=== PATIENT | female | born 1985 | race American Indian/Alaskan Native ===

== ENCOUNTER 2019-09-15 11:09 | Outpatient (CLI) | payer OTHER | END 2019-09-15 12:25 | disposition home or self-care (01) | LOC: NST 11:09 | DX: O13.2 Gestational [pregnancy-induced] hypertension without significant proteinuria, second trimester (principal) ==

== ENCOUNTER 2019-09-29 09:15 | Outpatient (CLI) | payer OTHER | END 2019-09-29 11:31 | disposition home or self-care (01) | LOC: NST 09:15 | DX: Z34.83 Encounter for supervision of other normal pregnancy, third trimester (principal) ==

== ENCOUNTER 2019-10-27 09:33 | Outpatient (CLI) | payer OTHER | END 2019-10-27 10:45 | disposition home or self-care (01) | LOC: NST 09:33 | DX: Z34.83 Encounter for supervision of other normal pregnancy, third trimester (principal) ==

== ENCOUNTER 2019-11-10 12:17 | Outpatient (CLI) | payer OTHER | END 2019-11-10 12:52 | disposition home or self-care (01) | LOC: NST 12:17 | PROVIDERS: ATTEND Obstetrics & Gynecology | DX: Z34.83 Encounter for supervision of other normal pregnancy, third trimester (principal) ==

== ENCOUNTER 2019-11-16 11:00 | Outpatient (CLI) | payer OTHER | END 2019-11-16 11:29 | disposition home or self-care (01) | LOC: NST 11:00 | PROVIDERS: ATTEND Obstetrics & Gynecology | DX: Z34.83 Encounter for supervision of other normal pregnancy, third trimester (principal) ==

== ENCOUNTER → 2019-11-24 | Outpatient (CLI) | payer OTHER ==
[~2019-11-24] MED LIST: FOLIC ACID0.8 M1 PO; NIFEDIPINE20 MG PO; PRENATAL TABLE1 EAC1 PO; TRANDATE300 MG PO
== END | disposition home or self-care (01) ==
LOC: NST 12:01
PROVIDERS: ATTEND Obstetrics & Gynecology Maternal & Fetal Medicine
DX: Z34.83 Encounter for supervision of other normal pregnancy, third trimester (principal)

== ENCOUNTER 2019-11-29 05:50 | Inpatient (IN) | payer OTHER ==
[~2019-11-29] VITALS: Ht 157.5 cm; Wt 67.1 kg
[2019-11-29] MEDS ORDERED: PRENATAL TABLE1 EAC1 PO (06:39)
[2019-11-29] MEDS ORDERED: TRANDATE300 MG PO (06:39)
[2019-11-29] MEDS ORDERED: NIFEDIPINE20 MG PO (06:39)
[2019-11-29] MEDS ORDERED: FOLIC ACID0.8 M1 PO (06:40)
== END 2019-12-02 12:17 | disposition home or self-care (01) | DRG 788 ==
LOC: SURG-SUITE 05:50 → LDR 05:50 → O/R 17:24 → SURG-SUITE 18:44 → OB/GYN 12-10 12:58
PROVIDERS: ADMIT Obstetrics & Gynecology Maternal & Fetal Medicine; ATTEND Obstetrics & Gynecology
PROC: 4A1HXFZ Monitoring of Products of Conception, Cardiac Rhythm, External Approach (ICD-10-PCS; 2019-11-29)
PROC: 3E033VJ Introduction of Other Hormone into Peripheral Vein, Percutaneous Approach (ICD-10-PCS; 2019-11-29)
PROC: 10907ZC Drainage of Amniotic Fluid, Therapeutic from Products of Conception, Via Natural or Artificial Opening (ICD-10-PCS; 2019-11-29)
PROC: 10D00Z1 Extraction of Products of Conception, Low, Open Approach (ICD-10-PCS; principal; 2019-11-29 16:30)
DX: O99.824 Streptococcus B carrier state complicating childbirth (principal); O62.1 Secondary uterine inertia; Z37.0 Single live birth; Z3A.38 38 weeks gestation of pregnancy; O16.4 Unspecified maternal hypertension, complicating childbirth

== ENCOUNTER 2021-02-28 11:26 | Outpatient (CLI) | payer OTHER | END 2021-02-28 12:08 | disposition home or self-care (01) | LOC: NST 11:26 | PROVIDERS: ATTEND Obstetrics & Gynecology Maternal & Fetal Medicine | DX: Z34.83 Encounter for supervision of other normal pregnancy, third trimester (principal) ==

== ENCOUNTER → 2021-03-07 | Outpatient (CLI) | payer OTHER | END | disposition home or self-care (01) | LOC: NST 14:30 | PROVIDERS: ATTEND Obstetrics & Gynecology Maternal & Fetal Medicine | DX: Z34.83 Encounter for supervision of other normal pregnancy, third trimester (principal) ==

== ENCOUNTER 2021-03-21 13:19 | Outpatient (CLI) | payer OTHER | END 2021-03-21 13:29 | disposition home or self-care (01) | LOC: NST 13:19 | PROVIDERS: ATTEND Obstetrics & Gynecology | DX: Z34.83 Encounter for supervision of other normal pregnancy, third trimester (principal) ==

== ENCOUNTER 2021-03-28 09:47 | Outpatient (CLI) | payer OTHER | END 2021-03-28 10:44 | disposition home or self-care (01) | LOC: NST 09:47 | PROVIDERS: ATTEND Obstetrics & Gynecology | DX: Z34.83 Encounter for supervision of other normal pregnancy, third trimester (principal) ==

== ENCOUNTER 2021-04-04 09:33 | Outpatient (CLI) | payer OTHER | END 2021-04-04 10:05 | disposition home or self-care (01) | LOC: NST 09:33 | PROVIDERS: ATTEND Obstetrics & Gynecology | DX: Z34.83 Encounter for supervision of other normal pregnancy, third trimester (principal) ==

== ENCOUNTER 2021-04-11 08:28 | Outpatient (CLI) | payer OTHER | END 2021-04-11 09:07 | disposition home or self-care (01) | LOC: NST 08:28 | PROVIDERS: ATTEND Obstetrics & Gynecology | DX: Z34.83 Encounter for supervision of other normal pregnancy, third trimester (principal) ==

== ENCOUNTER 2021-04-18 09:54 | Outpatient (CLI) | payer OTHER ==
[2021-04-18] MEDS ORDERED: PRENA1 CHEW TA1.4 MG PO (14:14)
== END 2021-04-18 10:37 | disposition home or self-care (01) ==
LOC: NST 09:54
PROVIDERS: ATTEND Obstetrics & Gynecology Maternal & Fetal Medicine
DX: Z34.83 Encounter for supervision of other normal pregnancy, third trimester (principal)

== ENCOUNTER 2021-04-18 11:30 | Inpatient (IN) | payer OTHER ==
[~2021-04-18] VITALS: Ht 154.9 cm; Wt 3.2 kg
[2021-04-18] MEDS ORDERED: PRENA1 CHEW TA1.4 MG PO (14:14)
[2021-04-23] MEDS ORDERED: LABETALOL HCL200 MG PO (08:26)
[2021-04-23] MEDS ORDERED: FOLIC ACID0.8 M1 PO (08:27)
[2021-04-23] MEDS ORDERED: NIFEDIPINE ER30 M1 (16:34)
[2021-04-23] MEDS ORDERED: CLONAZEPAM2 MG (16:34)
[2021-04-23] MEDS ORDERED: ESTAZOLAM2 MG (16:35)
[2021-04-23] MEDS ORDERED: VENLAFAXINE H37.5 MG (16:35)
[2021-04-26] MEDS ORDERED: OXYC1TAB9 PO (09:19)
[2021-04-26] MEDS ORDERED: KETO10TA2 PO (09:19)
== END 2021-04-26 15:30 | disposition home or self-care (01) | DRG 784 ==
LOC: OB/GYN 04-23 08:03 → SURG-SUITE 04-23 08:03 → O/R 04-23 08:03 → SURH 04-23 11:30 → OB/GYN 04-23 11:39 → SURG-SUITE 04-23 16:04
PROVIDERS: ADMIT Obstetrics & Gynecology; ATTEND Obstetrics & Gynecology
PROC: 0UB70ZZ Excision of Bilateral Fallopian Tubes, Open Approach (ICD-10-PCS; 2021-04-23)
PROC: 4A1HXFZ Monitoring of Products of Conception, Cardiac Rhythm, External Approach (ICD-10-PCS; 2021-04-23)
PROC: 10D00Z1 Extraction of Products of Conception, Low, Open Approach (ICD-10-PCS; principal; 2021-04-23 11:30)
DX: O34.211 Maternal care for low transverse scar from previous cesarean delivery (principal); O10.02 Pre-existing essential hypertension complicating childbirth; Z30.2 Encounter for sterilization; Z37.0 Single live birth; Z3A.37 37 weeks gestation of pregnancy